=== PATIENT | female | born 1955 | race Caucasian/White ===

== ENCOUNTER 2022-01-31 06:48 | Day surgery (SDC) | payer OTHER ==
[~2022-01-31] VITALS: Ht 149.9 cm; Wt 59.0 kg
[~2022-01-31 06:48] MED LIST: PRILOSEC OTC20 MG PO
[2022-01-31] MEDS ORDERED: CILOXAN5 ML OTIC (16:24)
== END 2022-01-31 19:30 | disposition home or self-care (01) ==
LOC: CIR.AMB 06:48
PROVIDERS: ATTEND Otolaryngology Otology & Neurotology
DX: H80.82 Other otosclerosis, left ear (principal); H90.12 Conductive hearing loss, unilateral, left ear, with unrestricted hearing on the contralateral side; Z20.822 Contact with and (suspected) exposure to COVID-19; Z86.16 Personal history of COVID-19; K29.70 Gastritis, unspecified, without bleeding